=== PATIENT | female | born 1965 | race Caucasian/White ===

== ENCOUNTER → 2024-03-02 12:24 | Outpatient (REF) | payer OTHER, SELFPAY ==
[2024-03-02 13:14] LABS: % Basophils 0.4 % (0-2); % Eosinophils 0.2 % (0-6); % Immature Granulocytes 0.3 % (0-0.5); % Lymphocytes 13.4 % (20.5-51.1); % Monocytes 7.6 % (1.7-9.3); % Neutrophils 78.1 % (42.2-75.2); Absolute Basophils 0.1 10^3/uL (0-0.2); Absolute Lymphocytes 2.1 10^3/uL (1.2-3.4); Absolute Monocytes 1.2 10^3/uL (0.1-0.6); Absolute Neutrophils 12.3 10^3/uL (1.4-6.5); Hematocrit 38.8 % (37.0-47.0); Hemoglobin 13.3 g/dL (12.0-16.0); Mean Corp Hgb Conc. 34.3 g/dL (33.0-37.0); Mean Corpuscular Volume 90.4 fL (81.0-99.0); Mean Platelet Volume 11.8 fL (7.4-10.4); Nucleated Red Blood Cells % 0 %; Platelet Count 232 10^3/uL (130-400); Red Blood Cell Count 4.29 10^6/uL (4.20-5.40); Red Cell Dist. Width 12.4 % (11.5-14.5); White Blood Cell Count 15.7 10^3/uL (4.8-10.8)
[2024-03-02 13:37] LABS: ALT (SGPT) 13 U/L (0-35); AST (SGOT) 21 U/L (14-36); Albumin 4.4 g/dl (3.5-5.0); Alkaline Phosphatase 57 U/L (38-126); Blood Urea Nitrogen 10 mg/dl (7-17); Calcium 9.7 mg/dl (8.4-10.2); Carbon Dioxide 27 mmol/L (22-30); Chloride 98 mmol/L (98-107); Glucose 96 mg/dl (70-99); Potassium 3.9 mmol/L (3.5-5.1); Sodium 135 mmol/L (135-145); Total Bilirubin 1.1 mg/dl (0.2-1.3); Total Protein 6.8 g/dl (6.3-8.2); eGFR > 60.00
== END ==
LOC: RAD 12:24
PROVIDERS: ATTENDING PHYSICIAN Nurse Practitioner Adult Health
DX: R10.31 Right lower quadrant pain (principal); R10.823 Right lower quadrant rebound abdominal tenderness
CPT/HCPCS: 36415; 74177; 80053; 85025; Q9967

== ENCOUNTER 2024-03-02 17:53 | Day surgery (SDC) | payer OTHER, SELFPAY ==
[2024-03-02] VITALS (9 sets, daily range): BP systolic 93–141; BP diastolic 53–88; BMI 21.2
--- NOTE | 2024-03-02 17:07 | ED.GENMED ---
History of Present Illness
General
Chief Complaint: Abdominal Pain
Source: patient
Exam Limitations: none
Time Seen by Provider: 03/02/24 16:42
Nursing documentation reviewed up to this point in time: agreed with
History of Present Illness
History of Present Illness:
58-year-old female presenting to the emergency department due to outpatient CT scan showing acute appendicitis. Patient reports she was woken up yesterday morning in the middle the night with pain in her upper abdomen. Patient states yesterday she
felt generally unwell including generalized pain in her mid abdomen associated with nausea and lack of appetite. Today, however, patient states that she began to feel somewhat better although pain seems to transition into her right lower abdomen in
the was more severe. Patient was seen by her primary care provider this morning who sent her for lab work and outpatient CT scan. Patient was called and referred to the emergency department due to findings on outpatient CT scan suspicious for
acute appendicitis and a leukocytosis on lab work.
Patient states she last ate Friday night. No blood thinners. No medical problems or drug allergies.
Review of Systems
Review of Systems
Allergies reviewed?: Yes
All Other Systems: ROS reviewed and negative except as documented in HPI and ROS
Phy Exam
Physical Exam
Physical Exam:
Vitals: Patient's vital signs are stable. Afebrile
General: Patient is well appearing, no acute distress. Nontoxic appearing
Skin: Warm and dry, no rashes or lesions
Head: Normocephalic, atraumatic
Eyes: Sclera nonicteric. EOMs intact. No nystagmus.
Throat: Protecting airway
Neck: Normal ROM, no cervical spine tenderness, no meningismus
Cardiac: Regular rate and rhythm, no murmurs.
Pulm: Normal respiratory effort, no wheezes, rales, rhonchi heard on exam.
Abdomen: Abdomen soft. Moderate abdominal tenderness, worse in right lower quadrant McBurney's point with voluntary guarding. No rebound tenderness. No CVA tenderness
Extremities: No evidence of cyanosis or edema. Great distal pulses
Neuro: Grossly intact.
Psychiatric: Normal affect.
Course
Orders/Labs/Results
Orders:
Orders
03/02/24 Dinner
Clear Liquid
At Your Request: Full Participation
Does patient need a safe tray?: No
03/02/24 17:15
Ketorolac [Toradol] 15 mg IV NOW STA
Ondansetron Injectable [Zofran] 4 mg IV NOW STA
Piperacillin/Tazo 3.375 Gram [Zosyn] 3.375 gram in 50 ml IV NOW
03/02/24 17:16
Consult Surgery [SURGICAL CONSULT] Urgent
Consulting Provider: Cole Dimas
Was physician already notified: Yes
03/02/24 17:19
0.9% Sodium Chloride 1000 ml [Nss] 1,000 ml IV BOLUS
03/02/24 17:46
Fentanyl Citrate/Pf [Sublimaze] 25 mcg IV PACU-Q5MPRN PRN
Fentanyl Citrate/Pf [Sublimaze] 50 mcg IV PACU-Q5MPRN PRN
Meperidine [Demerol] 12.5 mg IV PACU-Q5MPRN PRN
Ondansetron Injectable [Zofran] 4 mg IV PACU-ONCEPRN PRN
Prochlorperazine [Compazine] 5 mg IV PACU-ONCEPRN PRN
Notify MD As Directed
Notify physician if: for SDS patients with known or suspected sleep obstructive sleep apnea, monitor in the
PACU.
Notify MD for any apneic/desaturation episodes
O2 Therapy [RESP] Urgent
Titrate/Wean O2 to maintain O2 sat greater than (%): 92
Special Instructions: -Provide supplemental oxygen to achieve O2 sat of 92% or greater.
-After 15 min, may wean O2 and discontinue if patient is able to maintain O2 sat of 92%
or greater during recovery period.
If patient is a discharge home, without oxygen therapy, notify anestheiologist if
unable to maintain O2 SAT of 92% or greater on room air for MD clearance.
03/02/24 17:53
Fentanyl Citrate/Pf [Sublimaze] 100 mcg .ROUTE .STK-MED ONE
Midazolam HCl [Versed] 2 mg .ROUTE .STK-MED ONE
03/02/24 17:56
Notify MD As Directed
Notify physician if: for SDS patients with known or suspected sleep obstructive sleep apnea, monitor in the
PACU.
Notify MD for any apneic/desaturation episodes
O2 Therapy [RESP] Urgent
Titrate/Wean O2 to maintain O2 sat greater than (%): 92
Special Instructions: -Provide supplemental oxygen to achieve O2 sat of 92% or greater.
-After 15 min, may wean O2 and discontinue if patient is able to maintain O2 sat of 92%
or greater during recovery period.
If patient is a discharge home, without oxygen therapy, notify anestheiologist if
unable to maintain O2 SAT of 92% or greater on room air for MD clearance.
03/02/24 18:00
Normosol (Mult Electrolytes) [Normosol-R/Plasmalyte-A] 1,000 ml IV PER PROTOCOL
03/02/24 18:19
Admit/Transfer Patient As Directed
Co-Sign Provider:
Level of Care: Post Proc/Surg Recovery
Assign to:: Medical/Surgical
Physician / Group: Cole Dimas
Diagnosis: Acute Appendicitis
Reason for Overnight Stay: Require IV med- infection
PRN Pain Medication Management As Directed
May give lesser potent ordered pain med per pt: Yes
preference::
Protocol:: Medication orders for pain may be administered in a
manner that supports deferring to patient preference
when the pt is:
- Requesting an ordered lesser potent pain medication.
Least to most potent pain medications are defined
as: acetaminophen < NSAID < tramadol < opioids
(morphine, oxycodone, hydromorphone).
- Requesting a lesser dose of the same medication IF
ORDERED.
- Requesting a less intrusive route of administration
if both routes are prescribed by the provider (PO <
IV).
03/02/24 18:20
Code Status As Directed
Resuscitation Status: Full Code
03/02/24 18:29
Diphenhydramine [Benadryl] 50 mg .ROUTE .STK-MED ONE
03/02/24 18:40
Acetaminophen 1000MG/100Ml [Ofirmev] 1,000 mg in 100 ml .ROUTE .STK-MED
03/02/24 18:41
Dexamethasone Sod Phosphate [Decadron] 20 mg .ROUTE .STK-MED ONE
Lidocaine 2% Mpf [Xylocaine Mpf 2%] 100 mg .ROUTE .STK-MED ONE
Ondansetron Injectable [Zofran] 4 mg .ROUTE .STK-MED ONE
Propofol [Diprivan] 20 ml .ROUTE .STK-MED
Rocuronium [place] [Rocuronium] 50 mg .ROUTE .STK-MED ONE
03/02/24 18:47
Sugammadex Sodium [Bridion] 200 mg .ROUTE .STK-MED ONE
03/02/24 18:48
OR Pathology Routine
Pre-Operative Diagnosis: acute appendicitis
Post-Operative Diagnosis: same
Operative Procedure: laparoscopic appendectomy
Surgeon: shivam
Circulating Nurse: michael
Specimen Type: appendix
03/02/24 18:54
Famotidine [Pepcid] 20 mg .ROUTE .STK-MED ONE
03/02/24 19:43
0.9% Sodium Chloride 1000 ml [Nss] 1,000 ml IV 80 mls/hr
Acetaminophen [Tylenol] 650 mg PO Q4HPRN PRN
HYDROmorphone [Dilaudid] 0.25 mg IV Q2HPRN PRN
HYDROmorphone [Dilaudid] 0.5 mg IV Q2HPRN PRN
Ketorolac [Toradol] 10 mg IV Q6HPRN PRN
Ondansetron Injectable [Zofran] 4 mg IV Q6HPRN PRN
Oxycodone [Roxicodone] 5 mg PO Q4HPRN PRN
03/02/24 19:43
Activity As Directed
Activity Level: As Tolerated
Advance Diet as Tolerated As Directed
Goal Diet: Regular
Cold Application As Directed
Location: incisions
Frequency: PRN
Duration of Application: No longer than 30 minutes
Method of Delivery: Ice packs
Method of Delivery: Ice packs
Intake/ Output As Directed
Frequency: Per unit guidelines
Pneumatic Compression Sleeves As Directed
Type: Knee high
Vital Signs As Directed
Frequency: Per unit guidelines
DX Deep Vein Thrombosis Video Routine
03/02/24 19:46
Bladder Scan As Directed
Follow Bladder Retention/Intermittent Cath Algorithm?: Yes
PRN if no void in __ hours: 6
Frequency: Per Retention Algorithm
If Bladder Scan Result >: 400
then:: Straight cath
Straight Cath As Directed
Frequency: Per Retention Algorithm
Additional Instructions: straight cath as needed per acute urinary retention algorithm for 24 hrs
Additional Instructions: for bladder scan greater than 400 mL
03/03/24 00:00
Piperacillin/Tazo 3.375 Gram [Zosyn] 3.375 gram in 50 ml IV Q6H
03/07/24 20:00
Ibuprofen [Motrin] 400 mg PO Q6HPRN PRN
Vital Signs
Initial and Last Documented VS:
Initial Vital Signs
Temp Pulse Resp BP Pulse Ox
98 F 78 16 141/88 98
03/02/24 16:12 03/02/24 16:12 03/02/24 16:12 03/02/24 16:12 03/02/24 16:12
Last Documented Vital Signs
Temp Pulse Resp BP Pulse Ox
97.8 F 81 19 111/67 100
03/02/24 19:32 03/02/24 20:00 03/02/24 20:00 03/02/24 20:00 03/02/24 20:00
MDM/Problems Addressed
Differential Diagnosis Includes:
Not limited to: acute appendicitis, complicated appendicitis including perforation or abscess formation
MDM/Problems Addressed:
58-year-old female presenting with 2 days of abdominal pain and outpatient CT scan consistent with acute appendicitis. No fevers. Vital signs stable. Patient is afebrile. Physical exam as above. Patient is well-appearing, conversational and
nontoxic appearing. Abdomen is soft with moderate tenderness in right lower quadrant at McBurney's point. No rebound tenderness. Patient is perfusing well. Heart regular rate and rhythm. Lungs clear bilaterally. Did review labs from the
outpatient today which are significant for a leukocytosis of 15.7. CT scan does show finding consistent with acute appendicitis. No evidence of abscess formation or perforation. Case was discussed with general surgeon on-call, Dr. Dimas who
accepts patient to his service. Patient was started on IV fluids, Zosyn in emergency department. Pain currently well-controlled at this time.
Patient accepted to general surgery service in stable condition and transported to the OR for appendectomy.
Chronic conditions affecting care:
N/A
Acute Exacerbation and/or Progression of Chronic Illness:
N/A
*Pulse Oximetry
Patient hypoxic: no
*EKG
Interpreted by ED Provider?: NA
*Form Tamper Operator Interpretation
Rate: Form Tamper Operator- N/A
*Critical Care Note
Total Time (30-74mins, 75-104mins- exclusive of procedures): Not Applicable
Data Reviewed
Review of Other/Old Records Reveals: Labs (CBC and CMP performed today outpatient significant for leukocytosis of 15.7) and Radiology Studies (CT scan performed outpatient morning significant for findings consistent with acute appendicitis)
Patient Management
Discussion with other providers: [facility] (General Surgery-Dr. Dimas)
Escalation/DeEscalation of care consider admission/obs:
Admit for appendectomy. Patient taken to the OR from emergency department
ED Attending Note
-
Portions of this chart may have been created with voice recognition software.� Occasional wrong word or��sound alike� substitutions may have occurred due to the inherent limitations of voice recognition software.
Discharge Plan
Departure
Patient Disposition: Admit
Date of Disposition: 03/02/24
Time of Disposition: 17:25
Presentation/result/management discussed w/ accepting MD/DO: Dr. Dimas
Discharge Problem:
Acute appendicitis
Interventions
Interventions:
*Risk Screen - Suicide Last Done: 03/02/24 17:49
*General Assessment Last Done: 03/02/24 17:48
*Neglect/Abuse Screening Last Done: 03/02/24 17:48
ED- Fall Risk Assessment Last Done: 03/02/24 17:49
*ED COVID-19 Vaccine History Last Done: 03/02/24 17:47
*Nursing Disposition Last Done: 03/02/24 17:59
YF-Ntptik-Iqzehyvxeg Assessment Last Done: 03/02/24 17:51
Discharge Date and Time
Discharge Date/Time: 03/02/24 18:01
[2024-03-02] MEDS: NSS 1000 IV ×2 (17:42→20:26)
[2024-03-02] MEDS: ZOSYN 50 IV ×2 (17:42→23:09)
--- NOTE | 2024-03-02 18:15 | HP.FOC2 ---
Focused History & Physical
Chief Complaint
HPI:
Chief Complaint: Abdominal pain
HPI / Indication for Planned Procedure: Patient is a 58-year-old female who developed the acute onset of abdominal pain waking her from sleep at 1 AM about 36 hours ago. It was initially periumbilical and persisted throughout the day yesterday. It
was relieved somewhat with ibuprofen but got a bit worse overnight and began localizing to the right lower quadrant prompting evaluation with her primary care who referred her for outpatient CT imaging and lab testing then identifying acute
appendicitis referring her to the emergency department.
Persistent pain now localized to the right lower quadrant. Worse with movement or touch. Nausea and anorexia but no vomiting. Last bowel movement yesterday and normal.
She was actually treated for acute appendicitis medically at the age of 12 and has not had any recurrent symptoms since.
Relevant Past Medical History: Other (Patient denies any significant or active medical problems)
Relevant Social History: Negative
Relevant Family History: Negative
Relevant Past Surgical History: Positive for (Pyloric stenosis as an infant; wrist fracture repair; bunionectomy; up-to-date on colonoscopy)
Review of Systems
Review of Pertinent Systems: All Systems Negative Except for the Following Positives (As per HPI)
Medication
See Medication form for detailed medications: Yes
Medication List (including Herbals & OTC):
cholecalciferol (vitamin D3) 50 mcg (2,000 unit) tablet 2,000 units PO DAILY 07/23/21
ibuprofen 200 mg tablet 400 mg PO Q6HPRN PRN mild pain 07/23/21
Medications Reviewed: Yes
Allergies and Reactions
Patient has Allergies: No
Noted Allergies and Reactions:
Allergy/AdvReac Type Severity Reaction Status Date / Time
No Known Allergies Allergy Verified 07/24/21 08:20
Pertinent Physical Exam
All Other Systems: Negative
Head/Neck: Normal
Lungs: Normal
Heart: Normal
Abdomen: Other (Soft, nondistended, tenderness palpation localizing to the right lower quadrant with voluntary guarding or rebound. Positive Rovsing sign)
Extremities: Normal
Neurological: Normal
Diagnosis / Assessment
Assessment: 58-year-old female with acute appendicitis.
Reviewed with patient history, examination and CT imaging consistent with acute appendicitis. Discussed both operative and nonoperative management options and associated risks/benefits of approaches. Patient is in agreement to proceed with
appendectomy.
Laparoscopic appendectomy reviewed in detail with the patient. Discussed operative technique utilizing diagrams or drawings, alternative management options, benefits and potential risks such as but not limited to bleeding, infectious or wound
healing complications, iatrogenic injury to surrounding viscera. Discussed the typical postoperative recovery pending operative findings.
Any of the patient's concerns or questions were fully addressed and informed consent was obtained.
Plan: OR for laparoscopic appendectomy.
Empiric antibiotic coverage with Zosyn administered in emergency department.
Nothing by mouth, IV fluid hydration and supportive care awaiting operative room availability.
SCDs for DVT prophylaxis
Plan / Procedure
Laparoscopic appendectomy
Anesthesia/Sedation to be done by Anesthesia Provider: Yes
--- NOTE | 2024-03-02 18:17 | W.SUR.PREOP ---
Pre-Operative Surgical Note
-
I have examined this patient prior to the performance of the scheduled procedure.
The patient's condition is unchanged from the time of the current History and
Physical and the patient is able to undergo the scheduled procedure.
--- NOTE | 2024-03-02 19:40 | W.IMMPOSTOP ---
Addendum entered and electronically signed by Cole Dimas MD 03/02/24 19:53:
#[id number]
Original Note:
Surgical Immed Post Op Note
-
Primary Surgeon: Wing
Assisting Surgeon: None
Pre-op Diagnosis: Acute appendicitis
Post-op Diagnosis: Acute appendicitis
Procedure Performed: Laparoscopic appendectomy
Anesthesia Type: GETA +0.25% Marcaine
Specimen / Cultures: Appendix
Estimated Blood Loss: 12 mL
Complications: None immediate
Operative Findings: Indurated, distended appendix with exudate surrounding it but no visible perforation nor abscess. Mesoappendix mobilized and divided with harmonic for hemostasis. Appendix divided flush with cecum utilizing Endo JEVON fuentes 45 mm
articulating stapler.
Plan: Continue Zosyn postoperatively with 5-day course postoperative antibiotics which will be transitioned to Augmentin
Clear liquid diet, monitor for signs of postoperative ileus
Patient's updated via phone call
[2024-03-02] MEDS: TORADOL 10 MG IV (23:09)
--- NOTE | 2024-03-02 23:15 | PTCARENOTE ---
Pt arrived via bed from PACU at 2030. Pt AAOX3. VSS. Pt complains of no pain. IVF infusing. Head to toe assessment complete. Pt resting comfortably with at the bedside. Bed in lowest position and locked. call delong within reach.
[2024-03-03] MEDS: ZOSYN 50 IV (05:00)
[2024-03-03 05:06] VITALS: BP 101/50
--- NOTE | 2024-03-03 07:17 | W.PN.GS2 ---
Today's Communication / Plan
-
`
Assessment / Plan
-
Assessment: POD#1 s/p lap appy for acute appendicitis
AFVSS
doing well post op
Plan: regular diet
d/c home
complete 5 day post op course Augmentin
d/c instructions/care reviewed
Subjective Data
-
Date of Service: March 03, 2024
pt seen and examined
feels well post op
minimal pain
no nausea
+fl and BM this AM
akira clears
Objective Data
-
Intake and Output
03/02/24 03/03/24 03/04/24
06:59 06:59 06:59
Intake Total 1260 / 1260
Output Total 400 / 400
Balance 860 / 860
Intake:
IV fluids (Total) 1160 / 1160
Normosal 200 / 200
IV piggybacks 100 / 100
Output:
Urine, Voided 400 / 400
Other:
Number of approximated MODERATE 2
amounts of urine
Vital Signs
Temp Pulse Resp BP Pulse Ox
98.6 F 81 14 101/50 96
03/03/24 05:06 03/03/24 05:06 03/03/24 05:06 03/03/24 05:06 03/03/24 05:06
Physical Exam
-
NAD AAOx3
ABD: soft, ND, minimal TTP at incision site and RLQ
incisions with glue dressing
[2024-03-03 07:25] VITALS: BP 111/73
--- NOTE | 2024-03-03 07:25 | W.DS.TRANS ---
DC Summary - Production Control Specialist
-
Discharge Instructions:
Discharge Diagnosis/Procedures Acute appendicitis; laparoscopic appendectomy
Diet As tolerated,Regular
Additional Diets Smaller meals initially after surgery as
abdominal bloating and distention may be common
for the first few days
Activity No strenuous activity
Additional Activity No lifting over 15 to 20 pounds for 3 to 4 weeks
postoperatively. Walking, standing, stairs and
routine light activities are all okay as
tolerated
Driving Restrictions No driving for 1 to 2 days or if using narcotics
Bathing Restrictions OK to Shower
Wound Care Glue at surgical sites typically peels off in 2
to 3 weeks
Instructions:
Stand-Alone Forms:
Changes to Home Medications: No
Discharge Medications:
DC Medications w/original date entered in [employer]
cholecalciferol (vitamin D3) 50 mcg (2,000 unit) tablet 2,000 units PO DAILY 07/23/21
ibuprofen 200 mg tablet 400 mg PO Q6HPRN PRN mild pain 07/23/21
acetaminophen 500 mg tablet (Tylenol Extra Strength) 1,000 mg (2 x 500 mg) PO Q6HPRN PRN mild pain #1 tab 03/03/24
amoxicillin 875 mg-potassium clavulanate 125 mg tablet 1 tab PO Q12 antibiotic #10 tabs 03/03/24
Home Medication Changes
Pending Results: No
--- NOTE | 2024-03-03 10:16 | CM ---
Reviewed the chart notes and spoke with the patient at the bedside. The patient resides with her spouse in a three story home with two steps to enter. The patient reports no DME/VN/SNF in the past. The patient confirmed her pharmacy of choice is
the [facility]. CM continues to be available to patient/family and is monitoring medical plan for needs at discharge.
Plan: Discharge to home today. Patient's spouse will provide transportation home.
[2024-03-03 10:25] VITALS: BP 106/74
== END 2024-03-03 10:54 | disposition home or self-care (01) ==
LOC: PACU 17:53
PROVIDERS: ATTENDING PHYSICIAN Surgery; EMERGENCY PHYSICIAN Emergency Medicine; FAMILY PHYSICIAN Family Medicine
DX: K35.30 Acute appendicitis with localized peritonitis, without perforation or gangrene (principal)
CPT/HCPCS: 44970; 88304; 96374; 99285

== ENCOUNTER → 2024-03-17 07:46 | Outpatient (REF) | payer OTHER, SELFPAY ==
[2024-03-17 09:17] LABS: % Basophils 0.9 % (0-2); % Eosinophils 1.5 % (0-6); % Immature Granulocytes 0.4 % (0-0.5); % Lymphocytes 25.4 % (20.5-51.1); % Monocytes 6.9 % (1.7-9.3); % Neutrophils 64.9 % (42.2-75.2); Absolute Basophils 0.1 10^3/uL (0-0.2); Absolute Eosinophils 0.1 10^3/uL (0-0.7); Absolute Lymphocytes 2.3 10^3/uL (1.2-3.4); Absolute Monocytes 0.6 10^3/uL (0.1-0.6); Hematocrit 43.3 % (37.0-47.0); Hemoglobin 14.6 g/dL (12.0-16.0); Mean Corp Hgb Conc. 33.7 g/dL (33.0-37.0); Mean Corpuscular Hgb 31.7 pg (27.0-31.0); Mean Corpuscular Volume 93.9 fL (81.0-99.0); Mean Platelet Volume 11.5 fL (7.4-10.4); Nucleated Red Blood Cells % 0 %; Platelet Count 305 10^3/uL (130-400); Red Blood Cell Count 4.61 10^6/uL (4.20-5.40); Red Cell Dist. Width 12.3 % (11.5-14.5); White Blood Cell Count 9.2 10^3/uL (4.8-10.8)
[2024-03-17 10:26] LABS: ALT (SGPT) 20 U/L (0-35); AST (SGOT) 27 U/L (14-36); Alkaline Phosphatase 53 U/L (38-126); Blood Urea Nitrogen 17 mg/dl (7-17); Calcium 10.3 mg/dl (8.4-10.2); Carbon Dioxide 27 mmol/L (22-30); Chloride 100 mmol/L (98-107); Glucose 108 mg/dl (70-99); HDL Cholesterol 87 mg/dl; LDL Cholesterol, Calculated 208 mg/dl; Potassium 4.8 mmol/L (3.5-5.1); Sodium 140 mmol/L (135-145); Total Bilirubin 0.8 mg/dl (0.2-1.3); Total Cholesterol 321 mg/dl (50-199); Total Protein 7.7 g/dl (6.3-8.2); Triglyceride 132 mg/dl (10-149); Very Low Density Lipoprotein 26 mg/dl (0-30); eGFR > 60.00
[2024-03-17 10:55] LABS: TSH Reflex To Free T4 0.82 uIU/ml (0.47-4.68)
== END ==
LOC: WDC 07:46
PROVIDERS: ATTENDING PHYSICIAN Nurse Practitioner Adult Health; FAMILY PHYSICIAN Family Medicine
DX: Z12.31 Encounter for screening mammogram for malignant neoplasm of breast (principal); Z78.0 Asymptomatic menopausal state
CPT/HCPCS: 36415; 77063; 77067; 77080; 80053; 80061; 84443; 85025

== ENCOUNTER → 2024-07-27 06:35 | Outpatient (REF) | payer OTHER, SELFPAY ==
[2024-07-27 07:59] LABS: ALT (SGPT) 17 U/L (0-35); AST (SGOT) 24 U/L (14-36); Albumin 4.6 g/dl (3.5-5.0); Alkaline Phosphatase 57 U/L (38-126); Blood Urea Nitrogen 17 mg/dl (7-17); Calcium 9.2 mg/dl (8.4-10.2); Carbon Dioxide 29 mmol/L (22-30); Chloride 100 mmol/L (98-107); Glucose 93 mg/dl (70-99); HDL Cholesterol 76 mg/dl; LDL Cholesterol, Calculated 122 mg/dl; Potassium 4.5 mmol/L (3.5-5.1); Sodium 137 mmol/L (135-145); Total Bilirubin 0.7 mg/dl (0.2-1.3); Total Cholesterol 217 mg/dl (50-199); Total Protein 6.8 g/dl (6.3-8.2); Triglyceride 95 mg/dl (10-149); Very Low Density Lipoprotein 19 mg/dl (0-30); eGFR > 60.00
[2024-07-27 08:24] LABS: Vitamin D, 25-OH*** 50.4 ng/mL (30-80)
[2024-07-27 08:48] LABS: Glycohemoglobin (HgbA1c) 5.9 % (4.0-5.6)
== END ==
LOC: REG 06:35
PROVIDERS: ATTENDING PHYSICIAN Nurse Practitioner Adult Health; FAMILY PHYSICIAN Family Medicine
DX: R73.03 Prediabetes (principal); E78.00 Pure hypercholesterolemia, unspecified; M81.0 Age-related osteoporosis without current pathological fracture
CPT/HCPCS: 36415; 80053; 80061; 82306; 83036

== ENCOUNTER → 2025-03-22 07:26 | Outpatient (REF) | payer OTHER, SELFPAY | LOC: WDC 07:26 | PROVIDERS: ATTENDING PHYSICIAN Nurse Practitioner Adult Health; FAMILY PHYSICIAN Family Medicine | DX: Z12.31 Encounter for screening mammogram for malignant neoplasm of breast (principal) | CPT/HCPCS: 77063; 77067 ==

== ENCOUNTER → 2025-05-04 06:27 | Outpatient (REF) | payer OTHER, SELFPAY ==
[2025-05-04 07:16] LABS: Hematocrit 42.1 % (37.0-47.0); Hemoglobin 14.3 g/dL (12.0-16.0); Mean Corp Hgb Conc. 34.0 g/dL (33.0-37.0); Mean Corpuscular Volume 95.0 fL (81.0-99.0); Nucleated Red Blood Cells % 0 %; Platelet Count 225 10^3/uL (130-400); Red Cell Dist. Width 12.4 % (11.5-14.5)
[2025-05-04 07:55] LABS: ALT (SGPT) 32 U/L (0-35); AST (SGOT) 25 U/L (14-36); Albumin 4.7 g/dl (3.5-5.0); Alkaline Phosphatase 42 U/L (38-126); Blood Urea Nitrogen 18 mg/dl (7-17); Calcium 9.7 mg/dl (8.4-10.2); Carbon Dioxide 29 mmol/L (22-30); Chloride 103 mmol/L (98-107); Glucose 97 mg/dl (70-99); HDL Cholesterol 90 mg/dl; LDL Cholesterol, Calculated 156 mg/dl; Potassium 4.7 mmol/L (3.5-5.1); Sodium 136 mmol/L (135-145); Total Protein 7.4 g/dl (6.3-8.2); Very Low Density Lipoprotein 16 mg/dl (0-30); eGFR > 60.00
== END ==
LOC: REG 06:27
PROVIDERS: ATTENDING PHYSICIAN Family Medicine
DX: Z00.00 Encounter for general adult medical examination without abnormal findings (principal)
CPT/HCPCS: 36415; 80053; 80061; 84443; 85025